=== PATIENT | male | born 1980 | race African-American/Black ===

== ENCOUNTER 2016-03-31 09:17 | Emergency (ER) | payer OTHER ==
[~2016-03-31] VITALS: Ht 167.6 cm; Wt 94.8 kg
[2016-03-31 09:21] VITALS: BP 150/99
== END 2016-03-31 09:57 | disposition home or self-care (01) ==
LOC: ER 09:19
DX: K05.10 Chronic gingivitis, plaque induced (principal); S00.81XA Abrasion of other part of head, initial encounter; E11.9 Type 2 diabetes mellitus without complications; I10 Essential (primary) hypertension; F17.210 Nicotine dependence, cigarettes, uncomplicated; F31.9 Bipolar disorder, unspecified; F10.20 Alcohol dependence, uncomplicated; X58.XXXA Exposure to other specified factors, initial encounter; Y93.89 Activity, other specified; Y92.89 Other specified places as the place of occurrence of the external cause; Y99.8 Other external cause status
CPT/HCPCS: 82962; 99283; A4606; Z7610

== ENCOUNTER 2016-05-17 17:41 | Emergency (ER) | payer OTHER ==
[~2016-05-17] VITALS: Ht 170.2 cm; Wt 86.2 kg
[2016-05-17 17:42] VITALS: BP 123/85
== END 2016-05-17 19:26 | disposition home or self-care (01) ==
LOC: ER 17:47
DX: K04.7 Periapical abscess without sinus (principal); I10 Essential (primary) hypertension; F17.210 Nicotine dependence, cigarettes, uncomplicated; E11.9 Type 2 diabetes mellitus without complications; F10.20 Alcohol dependence, uncomplicated
CPT/HCPCS: A4606; Z7610

== ENCOUNTER 2016-05-29 19:07 | Emergency (ER) | payer OTHER ==
[~2016-05-29] VITALS: Ht 167.6 cm; Wt 86.2 kg
[2016-05-29 19:31] VITALS: BP 115/74
== END 2016-05-29 20:01 | disposition home or self-care (01) ==
LOC: ER 19:07
DX: H66.91 Otitis media, unspecified, right ear (principal); J20.9 Acute bronchitis, unspecified; I10 Essential (primary) hypertension; E11.9 Type 2 diabetes mellitus without complications; F31.9 Bipolar disorder, unspecified; F17.200 Nicotine dependence, unspecified, uncomplicated
CPT/HCPCS: 99283; 99406; A4606; Z7610